=== PATIENT | male | born 1960 | race Caucasian/White ===

== ENCOUNTER 2017-01-25 02:10 | Emergency (ER) | payer BC ==
[~2017-01-25] VITALS: Ht 175.3 cm; Wt 75.0 kg
[~2017-01-25 02:10] MED LIST: CIPRO500 MG PO; COUMADIN,JANTOVE5 MG PO; DEXILANT60 MG PO; Ecotrin PO; FLAGYL500 MG PO; HYDROCODON-ACE1 EAC7 PO; LIPITOR80 MG PO; LYRICA50 MG PO; NEURONTIN300 MG PO; PERCOCET 5/31 TABLET PO; PREVACID15 MG PO; PREVACID30 MG PO; PROTONIX40 M1 PO; ST. JOSEPH ASPI81 MG PO; XARELTO10 MG PO
[2017-01-25 03:25] LABS: HEMATOCRIT 40.2 % (38.0-50.0); MCH 31.4 PG (29.0-34.0); MCHC 34.1 G/DL (30.0-36.0); MCV 92.2 FL (86-99); MEAN PLAT.VOLUME 9.1 uM^3 (9.0-12.4); PLATELET COUNT 210 K/uL (156-360); RBC DIS.WIDTH-CV 13.2 % (11.8-14.6); RBC DIS.WIDTH-SD 45.2 % (39-53); RED BLOOD COUNT 4.36 M/uL (4.00-5.50); WHITE BLOOD COUNT 3.8 K/uL (4.1-10.2)
[2017-01-25 03:38] LABS: CHLORIDE 111 mEq/L (99-109); POTASSIUM 3.5 mEq/L (3.7-5.4); SODIUM 143 mEq/L (136-147)
[2017-01-25 03:40] LABS: GLUCOSE 112 mg/dL (70-99)
[2017-01-25 03:41] LABS: ANION GAP 9 MEQ/L (2-14)
[2017-01-25 03:42] LABS: TOTAL BILIRUBIN 0.5 mg/dL (0.0-1.0)
[2017-01-25 03:43] LABS: ALKALINE PHOSPHATASE 71 IU/L (3-129); SERUM ETHYL ALCOHOL 89 mg/dL
[2017-01-25 03:44] LABS: GFR ESTIMATE (CALCULATED) > 59 mL/min/
[2017-01-25 03:45] LABS: UREA NITROGEN (BUN) 8 mg/dL (9-23)
[2017-01-25 03:47] LABS: CREATINE KINASE 196 IU/L (1-294); TOTAL CK 196 IU/L (1-294)
[2017-01-25 03:53] LABS: CK-MB 2.6 ng/mL (0.0-4.9)
[2017-01-25 06:32] LABS: ADD MIUA? NO; BILIRUBIN NEGATIVE; BLOOD NEGATIVE; COLOR YELLOW ((YELLOW)); GLUCOSE (STRIP) NEGATIVE; KETONES NEGATIVE; LEUKOCYTES NEGATIVE; NITRITE NEGATIVE; PROTEIN (STRIP) NEGATIVE; SPECIFIC GRAVITY 1.006 (1.000-1.030); UCUL ADDED? NO; UROBILINOGEN 0.2 MG/DL (0.2-1.0)
[2017-01-25 06:40] VITALS: BP 157/96
[2017-01-25 06:40] LABS: AMPHETAMINE NEGATIVE (500 ng/mL); BARBITURATES NEGATIVE (200 ng/mL); BENZODIAZEPINES NEGATIVE (150 ng/mL); COCAINE NEGATIVE (150 ng/mL); INTERNAL CONTROLS VALID? YES; METHADONE NEGATIVE (200 ng/mL); METHAMPHETAMINE NEGATIVE (500 ng/mL); OPIATES (MORPHINE) NEGATIVE (100 ng/mL); OXYCODONE NEGATIVE (100 ng/mL); PHENCYCLIDINE NEGATIVE (25 ng/mL); PROPOXYPHENE NEGATIVE (300 ng/mL); THC CANNABINOIDS NEGATIVE (50 ng/mL); TRICYCLIC ANTIDEPRESSANTS NEGATIVE (300 ng/mL)
== END 2017-01-25 06:42 | disposition home or self-care (01) ==
LOC: EME → EDBD 02:10 → EME 06:42
PROVIDERS: Emergency Medicine
DX: F33.1 Major depressive disorder, recurrent, moderate (principal); F41.9 Anxiety disorder, unspecified; F10.129 Alcohol abuse with intoxication, unspecified; Y90.4 Blood alcohol level of 80-99 mg/100 ml; R25.8 Other abnormal involuntary movements; Z86.711 Personal history of pulmonary embolism; Z79.82 Long term (current) use of aspirin
CPT/HCPCS: 70450; 80053; 81003; 82550; 82553; 85027; 90839; 99281; 99285; G0480